=== PATIENT | female | born 1985 | race Caucasian/White ===

== ENCOUNTER → 2016-09-28 | Outpatient (CLI) | payer OTHER ==
--- NOTE | 2016-09-29 09:01 | REP ---
CT NECK WITH CONTRAST: HISTORY: Enlarged thyroid gland. The naso-, bakari- and hypopharynx, larynx, and subglottic trachea are normal in appearance. The salivary glands are normal in appearance. The thyroid gland is normal in size, however, decreased in density. Small lymph nodes less than 1 cm in size are present in the internal jugular chains, posterior triangles, submandibular and submental areas. There is no neck mass or adenopathy. The lung apices are clear. The visualized sinuses are clear. IMPRESSION: There is no neck mass or adenopathy. Signed by Pedro Garcia MD 09/29/2016 09:01 A
== END ==
LOC: M RAD 18:11
PROVIDERS: ATTEND Internal Medicine
DX: E06.3 Autoimmune thyroiditis (principal)

== ENCOUNTER 2017-05-11 11:47 | Emergency (ER) | payer OTHER ==
[~2017-05-11] VITALS: Ht 170.2 cm; Wt 118.4 kg
[2017-05-11] MEDS ORDERED: LEVO125T41 PO (12:10)
[2017-05-11] MEDS ORDERED: methylPREDNISolone INJ 125 MG/2 ML VIAL (J2930) IV ONE (13:15)
[2017-05-11] MEDS ORDERED: METOCLOPRAMIDE INJ 10MG/2ML VIAL (J2765) IV ONE (13:15)
[2017-05-11] MEDS ORDERED: diphenhydrAMINE INJ 50MG/ML VIAL (J1200) IV ONE (13:15)
[2017-05-11] MEDS ORDERED: NS 1,000 ML IV ONE (13:15)
[2017-05-11] MEDS ORDERED: KETOROLAC 30 MG/ML VIAL (J1885) IV ONE (13:15)
[2017-05-11 14:45] VITALS: BP 142/75
== END 2017-05-11 14:47 | disposition home or self-care (01) ==
LOC: M ED 11:47
DX: G43.909 Migraine, unspecified, not intractable, without status migrainosus (principal)
CPT/HCPCS: 96374; 96375; 99283; J1200; J1885; J2765; J2930

== ENCOUNTER → 2017-07-28 | Outpatient (CLI) | payer OTHER ==
[~2017-07-28] MED LIST: LEVO125T41 PO
== END ==
LOC: M RAD 12:27
PROVIDERS: ATTEND Otolaryngology
DX: E03.1 Congenital hypothyroidism without goiter (principal)

== ENCOUNTER → 2017-08-01 | Outpatient (CLI) | payer OTHER ==
--- NOTE | 2017-08-01 14:09 | REP ---
Clinical: Hyperthyroidism. Technique: Real time recio scale and color evaluation using linear high frequency transducer. Findings: The thyroid gland is diffusely heterogeneous and without distinct nodule or cystic components appreciated by ultrasound evaluation. Isthmus measures 3.2 mm in width. Right lobe measures 4.7 x 1.4 x 1.5 cm and appears diffusely heterogeneous. Left lobe measures 4.5 x 1.1 x 1.2 cm and appears diffusely heterogeneous. Bilateral cervical lymph nodes are identified measuring up to 1.2 x 0.3 x 0.9 centimeters on the right and 1.4 x 0.5 x 0.7 cm on the left. Impression: Heterogeneous thyroid gland without discrete nodule or cystic components appreciated. Signed by Toan Trimble MD 08/01/2017 02:00 P
== END ==
LOC: M RAD 12:12
PROVIDERS: ATTEND Otolaryngology
DX: E03.1 Congenital hypothyroidism without goiter (principal)

== ENCOUNTER 2017-10-18 10:42 | Day surgery (SDC) | payer OTHER ==
[2017-10-18] MEDS: NS 1,000 ML IV (11:39)
[2017-10-18] MEDS ORDERED: LIDOCAINE 2% INJ 100 MG/5 ML SDV (FOR ANES.) As Ordered (12:31)
[2017-10-18] MEDS ORDERED: PROPOFOL 500 MG/50 ML VIAL As Ordered (12:31)
[2017-10-18] MEDS ORDERED: ONDANSETRON 4MG/2ML VIAL (J2405) As Ordered (12:52)
== END 2017-10-18 13:30 | disposition home or self-care (01) ==
LOC: M OPP 10:42
DX: R12 Heartburn (principal); K22.8 Other specified diseases of esophagus; K44.9 Diaphragmatic hernia without obstruction or gangrene; K31.89 Other diseases of stomach and duodenum; K21.9 Gastro-esophageal reflux disease without esophagitis; I10 Essential (primary) hypertension; E05.90 Thyrotoxicosis, unspecified without thyrotoxic crisis or storm; E04.1 Nontoxic single thyroid nodule; G43.909 Migraine, unspecified, not intractable, without status migrainosus; F32.9 Major depressive disorder, single episode, unspecified; R19.7 Diarrhea, unspecified; R11.0 Nausea; R14.0 Abdominal distension (gaseous); K59.00 Constipation, unspecified; Z91.048 Other nonmedicinal substance allergy status; Z88.0 Allergy status to penicillin; Z88.5 Allergy status to narcotic agent; Z88.8 Allergy status to other drugs, medicaments and biological substances; Z79.899 Other long term (current) drug therapy
CPT/HCPCS: 43239

== ENCOUNTER → 2017-12-26 | Outpatient (CLI) | payer OTHER ==
[~2017-12-26] MED LIST changes: +E-Z-GAS II EFFERVESCENT PACKET (SODIUM BICARB./CITRIC ACID/SIMETHICONE) As Ordered; +E-Z-HD 98% w/w 340GM SUSP BTL As Ordered; +E-Z-PAQUE 96% w/w SUSP 176GM BTL As Ordered; -LEVO125T41 PO
== END ==
LOC: M RAD 09:59
DX: R13.19 Other dysphagia (principal); K21.9 Gastro-esophageal reflux disease without esophagitis; K44.9 Diaphragmatic hernia without obstruction or gangrene
CPT/HCPCS: 74220

== ENCOUNTER 2018-02-04 13:11 | Emergency (ER) | payer OTHER ==
[2018-02-04 13:49] LABS: BASO # 0.1 10^3/uL (0.0-0.2); BASO % 0.6 % (0.0-1.0); EOS # 0.1 10^3/uL (0.0-0.50); EOS % 1.6 % (0.0-3.0); HEMATOCRIT 39.8 % (36.0-47.0); HEMOGLOBIN 13.6 g/dl (12.0-15.5); IMMATURE GRANULOCYTE % 0.4 % (0-3.0); LYMPH # 2.2 10^3/uL (1.5-4.5); LYMPH % 27.2 % (24.0-44.0); MEAN CORPUSCULAR HEMOGLOBIN 30.3 pg (27.0-33.0); MEAN CORPUSCULAR HGB CONC 34.2 g/dl (32.0-36.5); MEAN CORPUSCULAR VOLUME 88.6 fl (80.0-96.0); MONO # 0.5 10^3/uL (0.0-0.8); MONO % 6.5 % (0.0-5.0); NEUTROPHILS # 5.2 10^3/uL (1.8-7.7); NEUTROPHILS % 63.7 % (36.0-66.0); PLATELET COUNT, AUTOMATED 350 10^3/uL (150-450); RED BLOOD COUNT 4.49 10^6/uL (4.00-5.40); RED CELL DISTRIBUTION WIDTH 13.2 % (11.5-14.5); WHITE BLOOD COUNT 8.2 10^3/uL (4.0-10.0)
[2018-02-04] MEDS: TETRACAINE 0.5% OPHTH SOLN 4ML OD (14:00)
[2018-02-04 14:20] LABS: CONTROL LINE HCG INT CTR LINE PRESENT; HCG, SERUM QUALITATIVE NEGATIVE (NEGATIVE)
[2018-02-04 14:33] LABS: ALBUMIN/GLOBULIN RATIO 1.18 (1.00-1.93); ALKALINE PHOSPHATASE 77 U/L (45-117); ALT/SGPT 34 U/L (12-78); ANION GAP 9 MEQ/L (8-16); AST/SGOT 21 U/L (7-37); BILIRUBIN,TOTAL 0.5 MG/DL (0.2-1.0); BLOOD UREA NITROGEN 8 MG/DL (7-18); CARBON DIOXIDE LEVEL 21 MEQ/L (21-32); CHLORIDE LEVEL 110 MEQ/L (98-107); CREATININE FOR GFR 0.74 MG/DL (0.55-1.30); GLOMERULAR FILTRATION RATE > 60.0 (>60); GLUCOSE, FASTING 102 MG/DL (70-100); POTASSIUM SERUM 3.6 MEQ/L (3.5-5.1); SODIUM LEVEL 140 MEQ/L (136-145); TOTAL PROTEIN 7.4 GM/DL (6.4-8.2)
[2018-02-05 11:04] LABS: HEPATITIS B SURFACE ANTIBODY NEGATIVE (POSITIVE)
[2018-02-05 11:13] LABS: HEPATITIS B SURFACE ANTIGEN NEGATIVE (NEGATIVE)
[2018-02-05 11:42] LABS: HIV 1&2 SCREEN CENTAUR NEGATIVE (NEGATIVE)
[2018-02-05 11:42] LABS: HEPATITIS C VIRUS ABY INDEX < 0.0 INDEX (<0.8)
== END 2018-02-04 15:32 | disposition home or self-care (01) ==
LOC: M ED 13:11
DX: Z77.21 Contact with and (suspected) exposure to potentially hazardous body fluids (principal); I10 Essential (primary) hypertension; E03.9 Hypothyroidism, unspecified; F33.9 Major depressive disorder, recurrent, unspecified
CPT/HCPCS: 80053

== ENCOUNTER 2018-08-08 15:18 | Emergency (ER) | payer OTHER ==
[2018-08-08 16:21] LABS: BASO # 0.1 10^3/uL (0.0-0.2); BASO % 0.8 % (0.0-1.0); EOS # 0.1 10^3/uL (0.0-0.50); EOS % 1.4 % (0.0-3.0); HEMOGLOBIN 14.8 g/dl (12.0-15.5); IMMATURE GRANULOCYTE % 0.5 % (0-3.0); LYMPH # 2.1 10^3/uL (1.5-4.5); LYMPH % 24.2 % (24.0-44.0); MEAN CORPUSCULAR HEMOGLOBIN 30.7 pg (27.0-33.0); MEAN CORPUSCULAR HGB CONC 33.6 g/dl (32.0-36.5); MEAN CORPUSCULAR VOLUME 91.3 fl (80.0-96.0); MONO # 0.5 10^3/uL (0.0-0.8); MONO % 5.7 % (0.0-5.0); NEUTROPHILS % 67.4 % (36.0-66.0); PLATELET COUNT, AUTOMATED 341 10^3/uL (150-450); RED BLOOD COUNT 4.82 10^6/uL (4.00-5.40); RED CELL DISTRIBUTION WIDTH 12.7 % (11.5-14.5); WHITE BLOOD COUNT 8.8 10^3/uL (4.0-10.0)
== END 2018-08-08 17:02 | disposition home or self-care (01) ==
LOC: M ED 15:18
DX: R59.0 Localized enlarged lymph nodes (principal); R76.0 Raised antibody titer; I10 Essential (primary) hypertension; E03.9 Hypothyroidism, unspecified; R51 Headache; Z88.0 Allergy status to penicillin; Z88.1 Allergy status to other antibiotic agents; Z88.8 Allergy status to other drugs, medicaments and biological substances; Z88.5 Allergy status to narcotic agent; Z88.2 Allergy status to sulfonamides; Z91.048 Other nonmedicinal substance allergy status; Z79.899 Other long term (current) drug therapy
CPT/HCPCS: 85025

== ENCOUNTER → 2018-08-17 | Outpatient (CLI) | payer OTHER | LOC: M RAD 14:35 | DX: N64.4 Mastodynia (principal); N64.59 Other signs and symptoms in breast | CPT/HCPCS: 77065 ==

== ENCOUNTER 2018-09-28 12:55 | Emergency (ER) | payer OTHER ==
[~2018-09-28] VITALS: Ht 170.2 cm; Wt 104.5 kg
[~2018-09-28 12:55] MED LIST changes: +ARMO120T; +BOSWPOW PO; +CAPS0.022; +CYAN1000VL; +DULO1CAP; +DULO1CAP3; -E-Z-GAS II EFFERVESCENT PACKET (SODIUM BICARB./CITRIC ACID/SIMETHICONE) As Ordered; -E-Z-HD 98% w/w 340GM SUSP BTL As Ordered; -E-Z-PAQUE 96% w/w SUSP 176GM BTL As Ordered; +IBUP200T45; +IRON65TA PO; +ISOT40CA PO; +LEVO125T41 PO; +LEVO175T2; +PANT40TA3; +PROP60CA; +RANI150T; +VITA1CAP7 PO
[2018-09-28] MEDS ORDERED: ACET-683 PO (13:00)
[2018-09-28] MEDS ORDERED: IBUP-1022 PO (13:00)
[2018-09-28] MEDS ORDERED: LEVO150T7 PO (13:00)
[2018-09-28 13:31] LABS: BASO # 0.1 10^3/uL (0.0-0.2); BASO % 0.7 % (0.0-1.0); EOS # 0.1 10^3/uL (0.0-0.50); EOS % 1.3 % (0.0-3.0); HEMATOCRIT 45.4 % (36.0-47.0); HEMOGLOBIN 15.2 g/dl (12.0-15.5); LYMPH # 2.6 10^3/uL (1.5-4.5); LYMPH % 27.2 % (24.0-44.0); MEAN CORPUSCULAR HEMOGLOBIN 30.1 pg (27.0-33.0); MEAN CORPUSCULAR HGB CONC 33.5 g/dl (32.0-36.5); MEAN CORPUSCULAR VOLUME 89.9 fl (80.0-96.0); MONO # 0.6 10^3/uL (0.0-0.8); MONO % 6.5 % (0.0-5.0); NEUTROPHILS % 63.8 % (36.0-66.0); PLATELET COUNT, AUTOMATED 213 10^3/uL (150-450); RED BLOOD COUNT 5.05 10^6/uL (4.00-5.40); WHITE BLOOD COUNT 9.4 10^3/uL (4.0-10.0)
--- NOTE | 2018-09-28 14:07 | REP ---
Right upper quadrant sonography: History: Right upper quadrant pain. No comparison study. Findings: Scanning through right upper quadrant of the abdomen demonstrates no focal liver lesion. There is mild fatty infiltration change in the liver. Gallbladder surgically absent. Common bile duct is normal post cholecystectomy measured at 0.7 cm in diameter. No pancreatic abnormalities observed. The tail of the pancreas is partially obscured by abdominal gas. There is no evidence of ascites. No significant right renal abnormality is observed. An extrarenal pelvis configuration is seen. The right kidney measures 12.5 x 6.1 x 4.6 cm. Impression: Negative right upper quadrant sonography post cholecystectomy. Electronically Signed by Bean Owens MD 09/28/2018 01:59 P
[2018-09-28 14:33] LABS: ALBUMIN 3.7 GM/DL (3.2-5.2); ALT/SGPT 21 U/L (12-78); BILIRUBIN,TOTAL 0.3 MG/DL (0.2-1.0); BLOOD UREA NITROGEN 7 MG/DL (7-18); CARBON DIOXIDE LEVEL 23 MEQ/L (21-32); CHLORIDE LEVEL 110 MEQ/L (98-107); CREATININE FOR GFR 0.74 MG/DL (0.55-1.30); GLOMERULAR FILTRATION RATE > 60.0 (>60); GLUCOSE, FASTING 85 MG/DL (70-100); LIPASE 168 U/L (73-393); POTASSIUM SERUM 3.9 MEQ/L (3.5-5.1); SODIUM LEVEL 139 MEQ/L (136-145); TOTAL PROTEIN 7.8 GM/DL (6.4-8.2)
[2018-09-28 14:39] LABS: HEPATITIS B SURFACE ANTIGEN NEGATIVE (NEGATIVE)
[2018-09-28] MEDS ORDERED: ISOVUE-370 76% 100ML VIAL (Q9967) As Ordered ONE (14:48)
[2018-09-28 15:07] LABS: HEPATITIS B CORE ANTIBODY IGM NEGATIVE (NEGATIVE); HEPATITIS C VIRUS ABY INDEX 0.1 INDEX (<0.8)
[2018-09-28 15:09] LABS: HEPATITIS A ANTIBODY IGM NEGATIVE (NEGATIVE)
--- NOTE | 2018-09-28 15:41 | REP ---
CT abdomen and pelvis with IV but without oral contrast: History: Right upper quadrant pain and swelling. No comparison study. CT contrast dose: 100 ml of intravenous Isovue [address] findings: Preliminary digital home coordinator radiograph demonstrates clips in the right upper quadrant and ventral hernia repair sutures in the central abdomen. The bowel gas pattern is normal. The lung bases are clear on axial CT images. There is minimal diffuse fatty infiltration of the liver. There are clips in the gallbladder fossa. No focal liver lesion is seen. Spleen is unremarkable. No adrenal lesion is seen. The pancreas shows no abnormality. Normal caliber aorta. The kidneys enhance symmetrically and appear morphologically intact. There is a 3 mm intrarenal calculus in the lower pole of the right kidney. There is no hydronephrosis. There is a phlebolith in the pelvis on each side. No ureteral stone is seen. No bladder calculus is seen. The patient is status post epigastric ventral hernia repair. At the bottom edge of the mesh repair, there is a tiny cystic area, 2 cm in greatest diameter. This is compatible with a small seroma. The uterus is surgically absent. The appendix is absent by history. Impression: 3 mm intrarenal calculus lower pole right kidney without hydronephrosis. Status post cholecystectomy, hysterectomy, appendectomy. Status post ventral hernia repair. A 2 cm seroma at the inferior edge of the mesh for the ventral hernia repair. No other abnormality. Electronically Signed by Bean Owens MD 09/28/2018 07:59 P
[2018-09-28] MEDS ORDERED: OMEP20CA3 PO (16:18)
[2018-09-28 16:28] VITALS: BP 119/70
--- NOTE | 2018-09-30 07:52 | ED PDOC ---
Post-Departure Follow-Up ft nina brown faxed formal report of ct abd/p for fu Bronwyn Rosa MD Sep 30, 2018 07:52
[2018-10-08] MEDS ORDERED: VITA1CAP7 PO (09:56)
[2018-10-08] MEDS ORDERED: DICY1CAP8 PO (09:56)
== END 2018-09-28 16:31 | disposition home or self-care (01) ==
LOC: M ED 12:55
DX: R10.11 Right upper quadrant pain (principal); R11.0 Nausea; N20.0 Calculus of kidney; I10 Essential (primary) hypertension; E03.9 Hypothyroidism, unspecified; F33.9 Major depressive disorder, recurrent, unspecified; K76.0 Fatty (change of) liver, not elsewhere classified; Z79.899 Other long term (current) drug therapy; Z79.890 Hormone replacement therapy; Z88.0 Allergy status to penicillin; Z88.1 Allergy status to other antibiotic agents; Z88.2 Allergy status to sulfonamides; Z88.8 Allergy status to other drugs, medicaments and biological substances; Z91.048 Other nonmedicinal substance allergy status
CPT/HCPCS: 36415; 74177; 76705; 80053; 83690; 85025; 86140; 86705; 86709; 86803; 87340; 99284; Q9967

== ENCOUNTER → 2018-12-17 | Outpatient (REF) | payer OTHER ==
[~2018-12-17] MED LIST changes: +ACET-683 PO; +D-3-50003 PO; +DICY1CAP8 PO; +IBUP-1022 PO; +LEVO150T7 PO; +OMEP20CA3 PO; -VITA1CAP7 PO
== END ==
LOC: M LAB REF 10:38
PROVIDERS: ATTEND Surgery
DX: E85.9 Amyloidosis, unspecified (principal)